=== PATIENT | male | born 1995 | race Caucasian/White ===

== ENCOUNTER 2020-11-04 16:25 | Observation (INO) ==
[2020-11-04 16:48] LABS: Basophils % 0.2 %; Hematocrit 48.3 % (37.5-50.1); Hemoglobin 16.7 g/dL (12.9-16.9); Immature Granulocytes % 0.5 % (0-4); Lymphocytes # 0.5 K/mcL (0.6-4.6); Lymphocytes % 8.4 %; Mean Corpuscular HGB Conc 34.6 g/dL (31.6-35.5); Mean Corpuscular Volume 92.5 fL (83.0-100.0); Mean Platelet Volume 10.9 fL (9.4-12.4); Monocytes # 0.8 K/mcL (0.0-1.3); Monocytes % 13.3 %; Neutrophils # 4.6 K/mcL (1.6-8.9); Platelet Count 169 K/mcL (140-400); Red Blood Count 5.22 M/mcL (4.19-5.50); Red Cell Distribution Width 12.8 % (11.5-14.5); Segmented Neutrophils % 77.6 %
[2020-11-04] MEDS ORDERED: hydrOXYzine pamoate 25 MG CAPSULE PO ONE (16:49)
[2020-11-04 16:54] LABS: Estimated Average Glucose 108 mg/dl; Hemoglobin A1C 5.4 %
[2020-11-04 17:10] LABS: Bilirubin,Urine Negative (Negative); Blood,Urine Negative (Negative); Clarity,Urine Clear (Clear); Color,Urine Yellow (Yellow); Glucose,Urine (UA) Normal (Normal); Hyaline Casts,Urine Moderate per lpf (None Seen); Ketones,Urine Trace mg/dL (Negative); Leukocyte Esterase,Urine Negative (Negative); Mucus,Urine Few per lpf (None-Few); Nitrite,Urine Negative (Negative); Protein,Urine 50 mg/dL (Neg-Trace); RBC,Urine 0-3 per hpf (0-3); Specific Gravity,Urine > 1.030 (1.010-1.025); Urobilinogen,Urine Normal (Normal); WBC,Urine 0-3 per hpf (0-3)
[2020-11-04 17:16] LABS: Acetaminophen < 10 mcg/mL (10-20); BUN/Creatinine Ratio 16 (6-26); Blood Urea Nitrogen 16 mg/dL (6-20); Calcium 9.5 mg/dL (8.6-10.3); Carbon Dioxide 17 mEq/L (23-29); Chloride 107 mEq/L (98-107); Chol/HDL Ratio 3.2 (0-4.9); Cholesterol 170 mg/dL (< 200); Ethanol < 10 mg/dL (Less than 10); Glucose 92 mg/dL (70-105); HDL Cholesterol 53 mg/dL (40-59); LDL Cholesterol,Calculated 87 mg/dL (< 100); Osmolality,Calculated 285 (280-300); Potassium 3.8 mEq/L (3.5-5.1); Salicylate < 2.5 mg/dL (15.0-30.0); Sodium 137 mEq/L (136-145); Triglycerides 150 mg/dL (< 150); eGFR For African Americans > 60 (> 60); eGFR For Non-African Americans > 60 (> 60)
[2020-11-04 17:31] LABS: Amphetamine Screen,Urine Negative ng/mL (Cutoff=1000); Barbiturate Screen,Urine Negative ng/mL (Cutoff=200); Benzodiazepines Screen,Urine Negative ng/mL (Cutoff=200); Cannabinoid Screen,Urine Positive ng/mL (Cutoff = 50); Cocaine Screen,Urine Negative ng/mL (Cutoff= 300); Opiate Screen,Urine Negative ng/mL (Cutoff=300); Phencyclidine Screen,Urine Negative ng/mL (Cutoff=25)
[2020-11-05] MEDS ORDERED: Acetaminophen 325 MG TABLET PO PRN (00:30)
[2020-11-05] MEDS ORDERED: Menthol 1 EACH LOZENGE PO PRN (00:30)
[2020-11-05] MEDS ORDERED: Benzonatate 100 MG CAPSULE PO PRN (00:30)
[2020-11-05] MEDS ORDERED: Naloxone 0.4 MG/ML INJ IVP PRN (00:33)
[2020-11-05] MEDS ORDERED: *HR* LORazepam 2 MG/ML VIAL IVP PRN ×3 (00:58)
[2020-11-05] MEDS ORDERED: *HR* Heparin 5,000 UNIT/ML VIAL SQ SCH (06:00)
[2020-11-05] MEDS ORDERED: Thiamine (B-1) 100 MG TABLET PO SCH (09:00)
[2020-11-05] MEDS ORDERED: Folic Acid 1 MG TABLET PO SCH (09:00)
[2020-11-05 09:44] VITALS: BP 129/85; PULSE 54; TEMP 97.7; O2SAT 99
== END 2020-11-05 14:23 | disposition home or self-care (01) ==
LOC: 3BNU 16:25 → EMEROOARM 16:25 → 3BNU 11-05 03:00
PROVIDERS: ADMIT Internal Medicine; ATTEND Internal Medicine